=== PATIENT | female | born 1995 | race Caucasian/White ===

== ENCOUNTER 2017-09-14 22:07 | Emergency (ER) | payer OTHER ==
[2017-09-14] MEDS ORDERED: NS 1,000 ML IV ONE ×2 (22:46→23:32)
[2017-09-14] MEDS ORDERED: ONDANSETRON 4 MG/2 ML VIAL IVP ONE (22:47)
[2017-09-14 22:52] LABS: PLATELET COUNT 317 10^3/uL (150-400)
--- NOTE | 2017-09-14 23:01 | CPEKG ---
Heart Rate: 64 RR Interval: 938 P-R Interval: 144 QRSD Interval: 82 QT Interval: 448 QTC Interval: 463 P [place]: 36 QRS [place]: 79 T Wave [place]: 45 EKG Severity - NORMAL ECG - EKG Impression: SINUS RHYTHM Electronically Signed By: Joshua Delarosa 15-Sep-2017 19:47:20
--- NOTE | 2017-09-14 23:32 | EDPHY ---
H & P Time Seen by Provider: 09/14/17 22:27 HPI/ROS: 22 yo F presents complaining of 2 near syncopal episodes 1 yesterday and 1 today. Yesterday she spent the morning free-soloing the first and second flat iron , it took several hours, was very hot, she admits she did not eat much or drink much water, she then studied much of the day , and late in the evening felt light headed and believes she passed out for a few seconds. No tongue biting, no loss of bowel or bladder control. Today she went climbing again and this evening felt nausea, followed by light headedness and states she almost fainted but did not lose consciousness. She states she had one beer this afternoon. One week ago she went snowboarding without a helmet and hit her head and scraped her left elbow, she denied having a headache, vomiting, dizziness or blurred vision at that time. She denies head ache today. Review of systems General no fever no chills no weakness HEENT no eye pain no eye discharge. No eye redness, no sore throat Respiratory no cough, no shortness of breath Cardiac no chest pain, no peripheral edema GI no abdominal pain, no diarrhea, no constipation, pos nausea,pos vomiting no flank pain, no hematuria, no dysuria Musculoskeletal no myalgias, no joint pain Heme no easy bruising, no easy bleeding Endo no polyuria, no polydipsia Skin no rashes, no pruritus Neuro no syncope,pos dizziness, no headaches Psych is no suicidal ideation, no homicidal ideation Past Medical/Surgical History: appendicitis age 6 Social History: college student Smoking Status: Never smoked Physical Exam: 22 yo F alert and oriented in no acute distress nontoxic appearance, afebrile Face is flushed HEENT atraumatic normocephalic, extraocular muscles intact, anicteric Oropharynx negative for erythema negative exudate, tolerating her own secretions Neck supple no meningismus Lungs clear to auscultation bilaterally Heart regular rate and rhythm without murmur rub or gallop Abdomen nondistended normoactive bowel sounds soft nontender Back no CVA tenderness, no step-offs, no spinal tenderness Extremities no cyanosis clubbing or edema Neuro alert and oriented, no focal deficits Constitutional: Initial Vital Signs Temperature (C) 36.6 C 09/14/17 22:28 Heart Rate 70 09/14/17 22:28 Respiratory Rate 14 09/14/17 22:28 Blood Pressure 110/70 09/14/17 22:28 O2 Sat (%) 99 09/14/17 22:28 O2 Delivery Mode Room Air Allergies/Adverse Reactions: No Known Allergies Allergy (Verified 09/14/17 22:27) Home Medications: Medication Instructions Recorded Lexapro 09/14/17 Trinessa Tablet 09/14/17 Medical Decision Making - Diagnostics EKG Interpretation: Normal sinus rhythm No ectopy No prolonged QT No ischemic changes ED Course/Re-evaluation: Patient seen and evaluated for to possible fainting or near syncopal episodes. IV established Normal saline fluids started Lab sent CBC elevated WBC CMP wnl dimer neg ua pos for ketones urine preg neg Patient given 2 L IV normal saline, ondansetron 4 mg IV push. Patient strenuous activity combined with heat and minimal fluid and food intake consistent with a dehydration and fashion as cause for her near syncope. D-dimer normal EKG no tachycardia reassuring for no sign of pulmonary embolism. Impression Dehydration Exhaustion Plan Discharge home Advised to drink plenty of fluids eat regular meals, and rest for the next several days. Follow up with primary care physician if symptoms continue Differential Diagnosis: Differential diagnosis considered but not limited to. Gastritis, gastroenteritis, heat exhaustion, dehydration, starvation ketosis, arrhythmia, dysrhythmia, pulmonary embolism - Data Points Laboratory Results: Laboratory Results 09/14/17 22:46 09/14/17 22:46 09/14/17 09/14/17 09/14/17 23:00 23:00 22:46 WBC RBC Hgb Hct MCV MCH MCHC RDW Plt Count MPV Neut % (Auto) Lymph % (Auto) Ray % (Auto) Eos % (Auto) Baso % (Auto) Nucleat RBC Rel Count Absolute Neuts (auto) Absolute Lymphs (auto) Absolute Monos (auto) Absolute Eos (auto) Absolute Basos (auto) Absolute Nucleated RBC Immature Gran % Immature Gran # D-Dimer < 0.27 ug/mLFEU ug/mLFEU (0.00-0.50) Sodium Potassium Chloride Carbon Dioxide Anion Gap BUN Creatinine Estimated GFR Glucose Calcium Total Bilirubin AST ALT Alkaline Phosphatase Total Protein Albumin Urine Color YELLOW Urine Appearance CLEAR Urine pH 6.0 (5.0-7.5) Ur Specific [place] 1.025 (1.002-1.030) Urine Protein NEGATIVE (NEGATIVE) Urine Ketones 2+ H (NEGATIVE) Urine Blood NEGATIVE (NEGATIVE) Urine Nitrate NEGATIVE (NEGATIVE) Urine Bilirubin NEGATIVE (NEGATIVE) Urine Urobilinogen 0.2 EU EU (0.2-1.0) Ur Leukocyte Esterase NEGATIVE (NEGATIVE) Urine Glucose NEGATIVE (NEGATIVE) Urine Test NEGATIVE 09/14/17 09/14/17 22:46 22:46 WBC 14.39 10^3/uL H 10^3/uL (3.80-9.50) RBC 4.10 10^6/uL L 10^6/uL (4.18-5.33) Hgb 12.9 g/dL g/dL (12.6-16.3) Hct 37.6 % L % (38.0-47.0) MCV 91.7 fL fL (81.5-99.8) MCH 31.5 pg pg (27.9-34.1) MCHC 34.3 g/dL g/dL (32.4-36.7) RDW 13.2 % % (11.5-15.2) Plt Count 317 10^3/uL 10^3/uL (150-400) MPV 11.5 fL fL (8.7-11.7) Neut % (Auto) 81.6 % H % (39.3-74.2) Lymph % (Auto) 12.4 % L % (15.0-45.0) Ray % (Auto) 5.2 % % (4.5-13.0) Eos % (Auto) 0.1 % L % (0.6-7.6) Baso % (Auto) 0.3 % % (0.3-1.7) Nucleat RBC Rel Count 0.0 % % (0.0-0.2) Absolute Neuts (auto) 11.74 10^3/uL H 10^3/uL (1.70-6.50) Absolute Lymphs (auto) 1.79 10^3/uL 10^3/uL (1.00-3.00) Absolute Monos (auto) 0.75 10^3/uL 10^3/uL (0.30-0.80) Absolute Eos (auto) 0.01 10^3/uL L 10^3/uL (0.03-0.40) Absolute Basos (auto) 0.04 10^3/uL 10^3/uL (0.02-0.10) Absolute Nucleated RBC 0.00 10^3/uL 10^3/uL (0-0.01) Immature Gran % 0.4 % % (0.0-1.1) Immature Gran # 0.06 10^3/uL 10^3/uL (0.00-0.10) D-Dimer Sodium 136 mEq/L mEq/L (135-145) Potassium 3.6 mEq/L mEq/L (3.5-5.2) Chloride 101 mEq/L mEq/L (97-110) Carbon Dioxide 22 mEq/l mEq/l (22-31) Anion Gap 13 mEq/L mEq/L (8-16) BUN 12 mg/dL mg/dL (7-23) Creatinine 0.8 mg/dL mg/dL (0.6-1.0) Estimated GFR > 60 Glucose 80 mg/dL mg/dL (70-100) Calcium 9.8 mg/dL mg/dL (8.5-10.4) Total Bilirubin 0.5 mg/dL mg/dL (0.1-1.4) AST 40 IU/L IU/L (14-46) ALT 24 IU/L IU/L (9-52) Alkaline Phosphatase 72 IU/L IU/L (38-126) Total Protein 8.2 g/dL g/dL (6.3-8.2) Albumin 4.3 g/dL g/dL (3.5-5.0) Urine Color Urine Appearance Urine pH Ur Specific [place] Urine Protein Urine Ketones Urine Blood Urine Nitrate Urine Bilirubin Urine Urobilinogen Ur Leukocyte Esterase Urine Glucose Urine Test Medications Given: Discontinued Medications Sodium Chloride (Ns) 1,000 mls @ 0 mls/hr IV ONCE ONE PRN Reason: Wide Open Stop: 09/14/17 22:47 Last Admin: 09/14/17 22:52 Dose: 1,000 mls Sodium Chloride (Ns) 1,000 mls @ 0 mls/hr IV ONCE ONE PRN Reason: Wide Open Stop: 09/14/17 23:33 Last Admin: 09/14/17 23:44 Dose: 1,000 mls Ondansetron HCl (Zofran) 4 mg IVP EDNOW ONE Stop: 09/14/17 22:48 Last Admin: 09/14/17 22:52 Dose: 4 mg Departure - Departure Disposition: Home, Routine, Self-Care Clinical Impression: Dehydration after exertion, Syncope, near, Dizziness Condition: Good Instructions: Near Syncope (ED), Dehydration (ED) Additional Instructions: Rest the next few days, drink plenty of fluids and eat several meals throughout the day. If you continue to have symptoms, see you primary care clinic or physician. If you feel markedly worse go to the closest Emergency Dept. Referrals: NONE *PRIMARY CARE P,. [Primary Care Provider] - As per Instructions
[2017-09-15 00:29] VITALS: BP 116/72
== END 2017-09-15 00:27 | disposition home or self-care (01) ==
LOC: CED 22:07
DX: R55 Syncope and collapse (principal); E86.0 Dehydration; R42 Dizziness and giddiness
CPT/HCPCS: 80053-PO; 81003-PO; 81025-PO; 85025-PO; 85378-PO; 96374; J2405